=== PATIENT | male | born 1985 | race Two or more races ===

== ENCOUNTER 2020-09-11 11:28 | Inpatient (IN) | payer OTHER ==
[~2020-09-11] VITALS: Ht 170.2 cm; Wt 64.0 kg
[2020-09-11 14:21] LABS: Salicylate < 1.7 mg/dL (2.8-20.0)
[2020-09-11 14:22] LABS: Acetaminophen < 2.0 ug/mL (10-30)
[2020-09-11 14:25] LABS: Albumin 4.1 g/dL (3.4-5.0); Calcium 8.6 mg/dL (8.5-10.1); Potassium 3.8 mmol/L (3.5-5.1)
[2020-09-11 14:27] LABS: Basophils # (auto) 0 10 ^3/uL (0-0.2); Basophils % (auto) 0.5 % (0.0-2.0); Eosinophils # (auto) 0 10 ^3/uL (0-0.8); Eosinophils % (auto) 0.4 % (0.0-7.0); Hematocrit 40.1 % (41.0-53.0); Hemoglobin 13.9 g/dL (13.5-17.5); Lymphocytes # (auto) 1.1 10 ^3/uL (0.4-5.4); Lymphocytes % (auto) 18.2 % (10.0-50.0); Mean Corpuscular Hemoglobin 30.1 pg (28.0-32.0); Mean Corpuscular Hgb Conc. 34.7 g/dL (32.0-36.0); Mean Corpuscular Volume 86.6 fL (80.0-100.0); Monocytes # (auto) 0.6 10 ^3/uL (0-1.3); Monocytes % (auto) 9.3 % (0.0-12.0); Neutrophils # (auto) 4.3 10 ^3/uL (1.6-8.6); Neutrophils % (auto) 71.6 % (37.0-80.0); Nucleated Red Blood Cells % 0.5 %; Platelet Count (auto) 172 10^3/uL (140-450); Red Blood Cells 4.63 10^6/uL (4.5-5.90); Red Cell Distribution Width 13.3 % (11.8-14.3)
[2020-09-11 14:28] LABS: BUN/Creatinine Ratio 8.8; Bilirubin, Total 0.3 mg/dL (0.2-1.0); Total Protein 7.5 g/dL (6.4-8.2)
[2020-09-11] MEDS ORDERED: SODIUM CHLORIDE 0.9% 1,000 ML IVB ONE (14:30)
[2020-09-11] MEDS ORDERED: MORPHINE SULF INJ 2 MG/ML SYRINGE 1ML IV PRN (16:45)
[2020-09-11] MEDS ORDERED: NITROGLYCERIN 0.4 MG SL TAB SL PRN (16:45)
[2020-09-11] MEDS ORDERED: D5W/SOD CHL 0.45% 1,000 ML IV ONE (16:45)
--- NOTE | 2020-09-11 19:20 | NUR ---
OPENING SHIFT NOTE Assumed care of patient who an inmate with guards bedside, [place] speaker who is alert and oriented. Currently on RA with no S/S of distress or SOB noted at this time. Patient denies any pain at this time. Ambulatory with urinal bedside. Tele #25 running NS @67bpm. POC discussed with patient all questions answered, verbalized understanding. Bed locked, in lowest position side rails up x2. Call light within reach, patient is encouraged to call for assistance as needed. Will continue to monitor PRN/Q1hr.
[2020-09-11 21:59] VITALS: BP 102/73
[2020-09-12 02:30] LABS: Urine WBC None Seen /hpf (0 - 3)
[2020-09-12 02:42] LABS: Urine Amorphous Crystal MANY /hpf (None Seen); Urine Bacteria FEW /hpf (None Seen); Urine Blood Negative /uL (Negative); Urine Mucus FEW (None Seen); Urine Specific Gravity 1.016 (1.001-1.035)
[2020-09-12 02:51] LABS: Amphetamine Screen, Urine NEGATIVE (NEGATIVE); Barbiturate Scree,Urine NEGATIVE (NEGATIVE); Benzodiazephine Screen, Urine NEGATIVE (NEGATIVE); Cannabinoid Screen, Urine NEGATIVE (NEGATIVE); Cocaine Screen, Urine NEGATIVE (NEGATIVE); Opiate Scree,Urine NEGATIVE (NEGATIVE); Phencyclidine Screen, Urine NEGATIVE (NEGATIVE)
--- NOTE | 2020-09-12 04:46 | NUR ---
PATIENT COMPLAINED OF CHEST No S/S of distress noted at this time. Patient is eating a sandwich while laughing during EKG lead placement. Vitals are as followed HR: 69 BP: 122/68 O2:97 RR:20 TEMP:97.9 EKG showed Normal Sinus. Patient denies chest pain stating "his skin hurts" while continuing to laugh. Will continue to monitor.
[2020-09-12 05:18] VITALS: BP 122/68
--- NOTE | 2020-09-12 06:07 | NUR ---
PAGED Patient complaints of hearing voices in his head that are "cussing at him and telling him to choke himself". Patient also took a drink of his urinal. Will await call back.
--- NOTE | 2020-09-12 07:32 | NUR ---
CARE ENDORSED TO DAY SHIFT RN
--- NOTE | 2020-09-12 08:10 | NUR ---
Opening Shift Note Assumed care of patient, awake and alert. No S/S of distress/SOB or pain. Instructed on POC and to call for assist PRN, will continue to monitor for changes Q1hr and PRN. Guards at bedside for safety.
[2020-09-12 08:38] VITALS: BP 122/71
[2020-09-12 13:12] VITALS: BP 146/93
[2020-09-12 16:38] VITALS: BP 143/98
--- NOTE | 2020-09-12 19:20 | NUR ---
OPENING SHIFT NOTE Assumed care of patient who an inmate with guards bedside, [place] speaker who is alert and oriented, guarded.Currently on RA with no S/S of distress or SOB noted at this time. Patient denies any pain at this time. Ambulatory with urinal bedside. POC discussed with patient all questions answered, verbalized understanding. Bed locked, in lowest position side rails up x2. Call light within reach, patient is encouraged to call for assistance as needed. Will continue to monitor PRN/Q1hr.
--- NOTE | 2020-09-12 19:45 | NUR ---
TREY BEDSIDE MD bedside, no new orders at this time.
[2020-09-12 22:00] VITALS: BP 146/66
--- NOTE | 2020-09-12 23:20 | NUR ---
PATIENT OFF UNIT Taken down to CT Scan
--- NOTE | 2020-09-12 23:40 | NUR ---
PATIENT BACK ON UNIT
[2020-09-13 05:00] VITALS: BP 133/89
--- NOTE | 2020-09-13 07:35 | NUR ---
CARE ENDORSED TO DAY SHIFT RN
[2020-09-13 08:00] VITALS: BP 145/78
--- NOTE | 2020-09-13 08:00 | NUR ---
Patient in bed, awake, oriented x4, no c/o pain, no nausea/vomiting. Patient speaks Japanese only. Male guards at bedside.
[2020-09-13 08:15] LABS: Albumin 4.3 g/dL (3.4-5.0); Calcium 9.4 mg/dL (8.5-10.1)
[2020-09-13 08:20] LABS: BUN/Creatinine Ratio 14.6; Bilirubin, Total 0.7 mg/dL (0.2-1.0); Total Protein 8.1 g/dL (6.4-8.2)
[2020-09-13 09:00] VITALS: BP 145/78
[2020-09-13 13:00] VITALS: BP 137/75
[2020-09-13 16:22] VITALS: BP 137/75
--- NOTE | 2020-09-13 18:00 | NUR ---
Patient going back to alf. Patient signed the discharge papers. [facility] guards at bedside. [employer] member has the discharge papers.
--- NOTE | 2020-09-13 19:06 | NUR ---
Endorsed to suit maker RN that patient is going back to [facility], waiting for [facility] to send transport. [facility] guards at bedside.
--- NOTE | 2020-09-13 20:10 | NUR ---
Discharge Discharge instructions completed and given to guards by dayshift RN. IV catheter removed and tele monitor removed and sent to the ICU by shift RN. Transport arrived at this time. Patient has been escorted out by guards. No distress noted at time of departure.
== END 2020-09-13 20:10 | DRG 918 ==
LOC: ER 11:28 → EEVIPCON 11:28 → EDBD 11:28 → TELE-CENTR 11:29 → ER 17:58
PROVIDERS: ADMIT Internal Medicine; ATTEND Internal Medicine
DX: T43.211A Poisoning by selective serotonin and norepinephrine reuptake inhibitors, accidental (unintentional), initial encounter (principal); G93.40 Encephalopathy, unspecified; F17.210 Nicotine dependence, cigarettes, uncomplicated; F41.9 Anxiety disorder, unspecified; F32.9 Major depressive disorder, single episode, unspecified; G47.00 Insomnia, unspecified; Z20.828 Contact with and (suspected) exposure to other viral communicable diseases; Y92.89 Other specified places as the place of occurrence of the external cause
CPT/HCPCS: 36415; 70450; 71045; 80053; 80307; 80329; 81001; 82550; 83735; 85025; 93005; 96360; 96361; G0378